=== PATIENT | male | born 1960 | race Caucasian/White ===

== ENCOUNTER 2016-08-31 12:34 | Outpatient (CLI) | payer OTHER ==
[2014-11-18 23:16] VITALS: BP 135/82
== END 2016-08-31 12:35 ==
LOC: CARD 12:34
PROVIDERS: ATTEND Internal Medicine Cardiovascular Disease
DX: I25.810 Atherosclerosis of coronary artery bypass graft(s) without angina pectoris (principal); I10 Essential (primary) hypertension; E78.5 Hyperlipidemia, unspecified; F17.210 Nicotine dependence, cigarettes, uncomplicated
CPT/HCPCS: 99213

== ENCOUNTER 2017-01-23 06:30 | Emergency (ER) | payer OTHER ==
[2017-01-23] MEDS: ORPHENADRINE CITRATE 60 MG/2ML IM ONE (07:02)
[2017-01-23] MEDS: KETOROLAC TROMETHAMINE 60 MG/2 ML VIAL IM ONE (07:02)
[2017-01-23] MEDS: PREGABALIN 50 MG CAPSULE PO ONE (07:03)
--- NOTE | 2017-01-23 07:58 | Diagnostic Imaging Report ---
[facility] [address] [facility].[address] [address] Report Submission Date: Jan 23, 2017 7:54:07 AM CDT Patient Study Name: ANNETTE MARSHALL Date: Jan 23, 2017 7:04:13 AM CDT Modality Type: CR Gender: M Description: SPINE : 58 Institution: [facility] Physician: VERNELL SANDERS - JULIA Cervical spine - five views Clinical history: Neck and right-sided shoulder pain for a couple of months. Findings: Examination of the cervical spine in AP, lateral, both oblique, lateral swimmer's and open mouth views demonstrates the vertebrae to be anatomically aligned. Disc spaces are narrowed at C4-5, C5-6 and C6-7 with osteophyte formation consistent with degenerative disc disease. The prevertebral soft tissues are within normal limits. Posterior osteophytes extend into the neural foramina bilaterally at C4-5, C5-6 and C6-7. The C1-2 articulation is normal and the base of the odontoid is intact. Carotid arterial calcification is incidentally noted. Impression: 1. Advanced spondylosis with degenerative disc disease and posterior osteophytes at C4-5, C5-6 and C6-7. 2. No fracture. 3. Carotid arterial calcification. Electronically signed on Jan 23, 2017 7:54:07 AM CDT by: Jonathan MILLS
--- NOTE | 2017-01-23 08:10 | ED Physician Documentation ---
Neck Injury/Pain - HISTORIAN Historian: patient - HPI Stated Complaint: right arm pain Chief Complaint: Neck Pain Onset: other (chronic) Further Comments: yes (57 year old female patient presents with 2 days of neck and scapula pain. Patient denies any heavy lifting or injury. Reports numbness in fingers of right hand. Reports history of chronic neck and hip pain.) - ROS NEURO/PSYCH: denies: difficulty with speech, anxiety, depression, other EYES/ENT: none CVS/RESP: none CONST: denies: no problems, recent illness GI/: denies: nausea, vomiting, problems urinating MS/SKIN/LYMPH: none - PAST HX Past History: intervertebral disc dis., neck injury, back injury, neck pain, back pain Cardiac Risk Factors: cardiac disease Surgeries/Procedures: cardiac stent Allergies/Adverse Reactions: Allergies Allergy/AdvReac Type Severity Reaction Status Date / Time Penicillins Allergy Verified 01/23/17 06:44 cephalexin monohydrate AdvReac Intermediate Hives Verified 01/23/17 06:44 [From SolvAxis] Home Medications: Ambulatory Orders Medication Instructions Recorded Baclofen [Liorasal] 10 mg PO QID #30 tablet 01/23/17 Ketorolac Tromethamine [Toradol] 10 mg PO TID #15 tablet 01/23/17 - SOCIAL HX Smoking History: cigarettes - FAMILY HX Family History: denies: none - VITAL SIGNS Vital Signs: Vital Signs Temp Pulse Resp BP Pulse Ox 97.9 F 80 16 152/80 97 01/23/17 06:35 01/23/17 06:35 01/23/17 06:35 01/23/17 06:35 01/23/17 06:35 - REVIEWED ASSESSMENT Nursing Assessment Reviewed: Yes Vitals Reviewed: Yes Progress - Progress Progress: Medicated with norflex and toradol IM. Patient states the medications did not help. No grimacing noted, able to reposition self with no complaints or grimacing. Gait steady. Discussed starting gabapentin, patient reports "I can't take that or Zoloft. I makes me crazy." Patient request prescription for oxycodone. 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 Will prescribe 5 day course of toradol and prn baclofen. Instructed to follow up with Dr Abarca on Tuesday. ED Results Lab/Radiology - Radiology Radiology Impressions: Cervical spine - five views Clinical history: Neck and right-sided shoulder pain for a couple of months. Findings: Examination of the cervical spine in AP, lateral, both oblique, lateral swimmer's and open mouth views demonstrates the vertebrae to be anatomically aligned. Disc spaces are narrowed at C4-5, C5-6 and C6-7 with osteophyte formation consistent with degenerative disc disease. The prevertebral soft tissues are within normal limits. Posterior osteophytes extend into the neural foramina bilaterally at C4-5, C5-6 and C6-7. The C1-2 articulation is normal and the base of the odontoid is intact. Carotid arterial calcification is incidentally noted. Impression: 1. Advanced spondylosis with degenerative disc disease and posterior osteophytes at C4-5, C5-6 and C6-7. 2. No fracture. 3. Carotid arterial calcification. - Orders Orders: ED Orders Category Date Time Status CERVICAL SPINE INCLUDING FLEX/EXT, OBLIQ [C SPINE 4 Exams 01/23/17 Completed VIEWS OR MORE] [RAD] Stat Ketorolac Tromethamine [Toradol] Med 01/23/17 06:53 Discontinued 60 mg IM NOW ONE Orphenadrine Citrate [Norflex] Med 01/23/17 06:53 Discontinued 60 mg IM NOW ONE Pregabalin [Lyrica] Med 01/23/17 06:53 Discontinued 50 mg PO BID ONE Neck Injury/Pain - Physical Exam General Appearance: mild distress Neck: nml inspection, non-tender, painless ROM, thyroid nml Back: non-tender, painless ROM, other (Scapula pain - lateral; worse with lying down) Respiratory: chest non-tender, breath sounds nml CVS: heart sounds nml, bilateral pulses nml Abdomen: non-tender, no organomegaly, nml bowel sounds, no distention Skin: normal color, warm/dry, NR, INT, PAL, DR Extremities: non-tender, normal range of motion, no evidence of injury, no edema , J, 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 Neuro/Psych: oriented x3, CN's nml as tested, sensation nml, motor nml, mood/ affect nml, 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
[2017-01-23 08:12] VITALS: BP 148/79
== END 2017-01-23 08:10 | disposition home or self-care (01) ==
LOC: ED 06:30
DX: M50.30 Other cervical disc degeneration, unspecified cervical region (principal)
CPT/HCPCS: 72050; J1885; J2360; 96372; 99283

== ENCOUNTER 2017-01-30 09:24 | Outpatient (CLI) | payer OTHER | END 2017-01-30 09:25 | LOC: RAD 09:24 | PROVIDERS: ATTEND Family Medicine | DX: Z53.9 Procedure and treatment not carried out, unspecified reason (principal) ==

== ENCOUNTER 2017-05-20 13:04 | Outpatient (CLI) | payer OTHER | END 2017-05-20 13:06 | LOC: POD 13:04 | PROVIDERS: ATTEND Podiatrist | DX: G60.3 Idiopathic progressive neuropathy (principal); M20.41 Other hammer toe(s) (acquired), right foot; M20.42 Other hammer toe(s) (acquired), left foot; B35.1 Tinea unguium | CPT/HCPCS: 99203 ==

== ENCOUNTER 2017-08-19 13:34 | Outpatient (CLI) | payer OTHER | END 2017-08-19 13:35 | LOC: POD 13:34 | PROVIDERS: ATTEND Podiatrist | DX: G60.3 Idiopathic progressive neuropathy (principal); M20.41 Other hammer toe(s) (acquired), right foot; M20.42 Other hammer toe(s) (acquired), left foot; B35.1 Tinea unguium | CPT/HCPCS: 99213 ==

== ENCOUNTER 2017-11-15 12:01 | Outpatient (CLI) | payer OTHER | END 2017-11-15 12:03 | LOC: CARD 12:01 | PROVIDERS: ATTEND Internal Medicine Cardiovascular Disease | DX: I25.10 Atherosclerotic heart disease of native coronary artery without angina pectoris (principal); I95.1 Orthostatic hypotension; I10 Essential (primary) hypertension; E78.5 Hyperlipidemia, unspecified; Z72.0 Tobacco use; N18.2 Chronic kidney disease, stage 2 (mild) | CPT/HCPCS: 99213 ==

== ENCOUNTER 2017-12-02 13:28 | Outpatient (CLI) | payer OTHER | END 2017-12-02 13:45 | LOC: POD 13:28 | PROVIDERS: ATTEND Podiatrist | DX: L89.892 Pressure ulcer of other site, stage 2 (principal) | CPT/HCPCS: 97597; 99213 ==

== ENCOUNTER 2017-12-16 14:09 | Outpatient (CLI) | payer OTHER | END 2017-12-16 14:10 | LOC: POD 14:09 | PROVIDERS: ATTEND Podiatrist | DX: L89.892 Pressure ulcer of other site, stage 2 (principal) | CPT/HCPCS: 99213 ==

== ENCOUNTER 2018-01-20 14:55 | Outpatient (CLI) | payer OTHER | END 2018-01-20 15:00 | LOC: POD 14:55 | PROVIDERS: ATTEND Podiatrist | DX: G60.3 Idiopathic progressive neuropathy (principal); M20.41 Other hammer toe(s) (acquired), right foot; M20.42 Other hammer toe(s) (acquired), left foot; B35.1 Tinea unguium; M79.674 Pain in right toe(s); M79.675 Pain in left toe(s) | CPT/HCPCS: 99213 ==

== ENCOUNTER 2018-05-22 20:57 | Emergency (ER) | payer OTHER ==
[2018-05-22 21:48] LABS: eGFR (Non-African) 55
[2018-05-22 21:49] LABS: EOSINOPHILS % 2.7 % (0.0-6.8); MEAN CORPUSCULAR HEMOGLOBIN 32.6 pg (28.0-34.0); MONOCYTES % 9.3 % (0.0-11.0)
--- NOTE | 2018-05-22 21:49 | ED Physician Documentation ---
General Adult - HISTORIAN Historian: patient - HPI Stated Complaint: Chest pain Chief Complaint: General Adult Additional Information: sITTING IN CHAIR WATCHING tv AT HOME AT ABOUT 1830 WHEN HE EXPERIENCED A MOMENTARY cp THAT WAS INTENSE AND FELT LIKE SOME THING WAS ABOUT TO EXPLODE IN HIS CHEST. pAIN ALSO RADIATED "A LITTLE" INTO HIS THROAT AND LEFT SHOULDER. pAIN ORIGINATED JUST DISTAL TO MID STERNAL LEVEL AND AT THE LEFT STERNAL BORDER. tHESE MOMENTARY EPISODES OCCURRED 5 TIMES OVE RAN HOUR. hE TOOK A 325 MG ASPIRIN, in addition to the regularly scheduled 325 mg daily dose. Had "--maker" 11 years ago and had a single stent placed at [facility]. Three momentary episodes of the same pain since arrival in ER, but is pain free at time of exam. No nausea or diaphoresis. Continues to smoke 2 PPD cigarettes. Has had 2-3 years intermittent muscle spasms which can involve any part of his body. No other modifying factors or associated events. - ROS CONST: no problems - PAST HX Past History: AMI Surgeries/Procedures: cardiac stent Allergies/Adverse Reactions: Allergies Allergy/AdvReac Type Severity Reaction Status Date / Time Penicillins Allergy Verified 01/23/17 06:44 sertraline [From Zoloft] Allergy Verified 05/22/18 21:37 sulfamethoxazole Allergy Verified 05/22/18 21:37 [From Bactrim] trimethoprim [From Bactrim] Allergy Verified 05/22/18 21:37 cephalexin monohydrate AdvReac Intermediate Hives Verified 01/23/17 06:44 [From Keflex] Home Medications: Ambulatory Orders Medication Instructions Recorded Aspirin [Aspirin EC] 325 mg PO D 05/22/18 - SOCIAL HX Smoking History: cigarettes - FAMILY HX Family History: No - VITAL SIGNS Vital Signs: Vital Signs Temp Pulse Resp BP Pulse Ox 98.0 F 76 18 156/80 97 05/22/18 21:13 05/22/18 21:13 05/22/18 21:13 05/22/18 21:13 05/22/18 21:13 - REVIEWED ASSESSMENTS Nursing Assessment Reviewed: Yes Vitals Reviewed: Yes Progress - Progress Progress: EKG: sinus rhythm, 72 BPM, no acute changes Report Submission Date: May 22, 2018 10:06:52 PM 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 Left basilar opacity obscures the left heart border. Small left pleural effusion is possible Thoracic spine degenerative changes. Impression: Mild cardiomegaly. Left basilar airspace disease. Small left pleural effusion. Recommend followup to resolution. Patchy right basilar atelectasis. Electronically signed on May 22, 2018 10:06:52 PM SEBD TEACHER by: Susan Guevara Report Submission Date: May 22, 2018 11:00:51 PM SEBD TEACHER Patient Study Name: ANNETTE MARSHALL Date: May 22, 2018 10:32:15 PM SEBD TEACHER Modality Type: CT\\SR Gender: M Description: CT CHEST W/O CONTRAST : 58 Institution: [facility] Physician: VERNELL SANDERS [facility] CT of the chest without contrast Clinical history: Left pleural effusion. Right atelectasis on recent chest x- ray. Technique: CT of the chest is performed in contiguous axial slices with sagittal and coronal reconstructions Findings: The lungs are free of coalescent infiltrate. There is minimal dependent atelectasis in the lung bases. There is no significant pleural effusion or pleural thickening. The central airways are patent. Vascular calcification present in the thoracic aorta with extension into the origins of the great vessels and coronary arteries. This includes calcification in the left main coronary artery. There is no mediastinal or hilar mass or significant adenopathy. Hepatic steatosis is evident on images through the upper abdomen. Spondylitic changes are seen in the thoracic vertebrae. Impression: 1. Dependent atelectasis in the lungs 2. Vascular calcification including calcification in the left main coronary artery. 3. Hepatic steatosis. Electronically signed on May 22, 2018 11:00:51 PM SEBD TEACHER by: Jonathan Main 0008, now tells RN he has been having "hellacious" pains. He explains that the pains are still momentary, still at L distal sternal border. Sometimes when he rotates head to right, the pain happens, but this is not consistent. Will give MS to see what effect it has on pains. 0030, spoke with Fatoumata, clinical project coordinator at [facility]. 0120, discussed pt with Dr. Dewey , cardiology, at [facility]. Ok to send pt home and FU with cardiology in next 2-3 days. ED Results Lab/Radiology - Orders Orders: ED Orders Category Date Time Status Continuous EKG monitoring Q1H Care 05/22/18 21:[address] IV Lock 1T Care 05/22/18 21:14 Active CHEST 2VIEW [RAD] Stat Exams 05/22/18 Ordered CBC/PLATELET/DIFF Routine Lab 05/22/18 21:19 Received CMP Routine Lab 05/22/18 21:19 Received TROPONIN I (cTnI) Stat Lab 05/22/18 21:19 Received URINALYSIS Routine Lab 05/22/18 Ordered EKG WITH COMPARISON Stat Ther 05/22/18 Ordered General Adult Physical Exam - PHYSICAL EXAM GENERAL APPEARANCE: mild distress (concerned) EENT: eye inspection normal, ENT inspection normal, pharynx normal (Mallampati 1) NECK: normal inspection, supple RESPIRATORY: no resp distress, chest non-tender, breath sounds normal CVS: reg rate & rhythm, heart sounds normal, no murmur ABDOMEN: soft, normal bowel sounds BACK: normal inspection, no CVA tenderness, other (no vertebral tenderness) SKIN: warm/dry, normal color EXTREMITIES: normal range of motion (gait and stance), no evidence of injury NEURO: CN's nml as tested, motor nml, sensation nml, cognition normal Discharge Clincal Impression: Non-cardiac chest pain Referrals: Ko Abarca MD [Primary Care Provider] - 2 Days Additional Instructions: Make an appointment with cardiology to be seen in the next two days. The phone number for the Jud is . Take the CD with your chest x ray and CT scan and EKG to that appointment. Return to the ER if your pain worsens or changes. Condition: Good Disposition: HOME, SELF-CARE Decision to Admit: NO Decision Time: 01:20
[2018-05-22 21:50] LABS: BASOPHILS % 0.5 (0.0-1.5); NEUTROPHILS # 3.7 # k/uL (1.4-7.7)
[2018-05-22] MEDS ORDERED: 0.9 % SODIUM CHLORIDE 1,000 ML IV ONE (22:05)
[2018-05-22] MEDS ORDERED: 0.9 % SODIUM CHLORIDE 1,000 ML IV SCH (22:30)
[2018-05-23] MEDS ORDERED: MORPHINE SULFATE 10 MG/ML VIAL IVP ONE (00:05)
[2018-05-23] MEDS ORDERED: ONDANSETRON HCL/PF 4 MG/ 2ML VIAL IVP ONE (00:05)
[2018-05-23 02:03] VITALS: BP 124/70
--- NOTE | 2018-05-23 06:31 | Diagnostic Imaging Report ---
VERNELL SANDERS [facility] [address] [facility] [address] [place] [address]. 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 Left basilar opacity obscures the left heart border. Small left pleural effusion is possible Thoracic spine degenerative changes. Impression: Mild cardiomegaly. Left basilar airspace disease. Small left pleural effusion. Recommend followup to resolution. Patchy right basilar atelectasis. Electronically signed on May 22, 2018 10:06:52 PM INS[employer] by: Susan MILLS
--- NOTE | 2018-05-23 06:31 | Diagnostic Imaging Report ---
VERNELL SANDERS [facility] [address] [facility] [address] [place], [place]. [address] Report Submission Date: May 22, 2018 11:00:51 PM LATCHER Patient Study Name: ANNETTE MARSHALL Date: May 22, 2018 10:32:15 PM LATCHER Modality Type: CT\SR Gender: M Description: CT CHEST W/O CONTRAST : 58 Institution: [facility] [place] [facility] Physician: VERNELL SANDERS CT of the chest without contrast Clinical history: Left pleural effusion. Right atelectasis on recent chest x- ray. Technique: CT of the chest is performed in contiguous axial slices with sagittal and coronal reconstructions Findings: The lungs are free of coalescent infiltrate. There is minimal dependent atelectasis in the lung bases. There is no significant pleural effusion or pleural thickening. The central airways are patent. Vascular calcification present in the thoracic aorta with extension into the origins of the great vessels and coronary arteries. This includes calcification in the left main coronary artery. There is no mediastinal or hilar mass or significant adenopathy. Hepatic steatosis is evident on images through the upper abdomen. Spondylitic changes are seen in the thoracic vertebrae. Impression: 1. Dependent atelectasis in the lungs 2. Vascular calcification including calcification in the left main coronary artery. 3. Hepatic steatosis. Electronically signed on May 22, 2018 11:00:51 PM LATCHER by: Jonathan MILLS
== END 2018-05-23 01:35 | disposition home or self-care (01) ==
LOC: ED 20:57
DX: R07.89 Other chest pain (principal); F17.200 Nicotine dependence, unspecified, uncomplicated
CPT/HCPCS: 71046; 71250; 80053; 84484; 85025; 93005; J2270; J2405; J7030; 36415; 96365; 96375; 99284; S1016

== ENCOUNTER 2019-04-14 02:15 | Emergency (ER) | payer OTHER | END 2019-04-14 02:45 | disposition home or self-care (01) | LOC: ED 02:15 | DX: G62.9 Polyneuropathy, unspecified (principal); M79.662 Pain in left lower leg; M79.661 Pain in right lower leg | CPT/HCPCS: 99282 ==

== ENCOUNTER 2019-05-14 10:37 | Outpatient (CLI) | payer OTHER ==
--- NOTE | 2019-05-15 15:06 | Diagnostic Imaging Report ---
PATIENT MR#: [id number] PATIENT PATIENT NAME: ANNETTE MARSHALL DATE OF : 1960 REFERRING PHYSICIAN: MARLEN SIEGEL EXAM DATE: 05/14/2019 ACCESSION NUMBER: [id number] EXAM DESCRIPTION: FOOT 3 VIEWS OR MORE CLINICAL HISTORY: RT FOOT ULCER WITH DRAINAGE COMPARISON: No study for comparison is available at the time of interpretation. 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 Mild osteopenia is noted at the lateral as pect of the 2nd proximal phalanx base. Osteopenia is also noted at the 3rd through 5th metatarsals heads. Plantar pari caneal spur at the plantar fascia insertion may predispose to plantar fasciitis. Joint spaces: The bones are well aligned. No articular surface abnormality is noted. Soft tissues: There is mild thickening of the tissues at the amputation site, without soft tissue gas . IMPRESSION: 1. 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 2. Mild osteopenia of the 2nd proximal phalanx base and 3rd through 5th metatarsal heads. 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 Follow-up radiographs may be helpful to evaluate for interval c hange in response to therapy. If infection worsens or persists, MRI would be helpful to evaluate for marrow edema in th e setting of osteomyelitis. Findings were discussed with Dr. Siegel by phone on May 15, 2019. Read by: Dr. Brando Rios Transcribed by: Brando Rios Transcribed Date: 05/15/2019 3:04:33 PM Electronically signed by: Dr. Brando Rios Date signed: 05/15/2019 3:05:28 PM
== END 2019-05-14 10:47 ==
LOC: RAD 10:37
PROVIDERS: ATTEND Podiatrist Foot & Ankle Surgery
DX: L97.519 Non-pressure chronic ulcer of other part of right foot with unspecified severity (principal)
CPT/HCPCS: 73630

== ENCOUNTER 2019-05-24 13:01 | Outpatient (CLI) | payer OTHER ==
--- NOTE | 2019-05-31 11:16 | OP Clinic Progress Note ---
DATE OF VISIT: 05/24/2019 SUBJECTIVE: Karla is a 59-year-old male presenting to clinic today for followup of a right foot ulcer under the third metatarsal head. The patient has a history of an open-heart surgery in the last year, as well as an Achilles tendon lengthening procedure that was performed in December or January 2019. He has been cared for by believe Dr. Dunn for this non-healing wound on the plantar third metatarsal head area of the right foot. He was being treated for several months and is not seeing anyone for that wound, as he felt that was going to improve. He has a history of infection in that wound, which started the process that led to an Achilles tendon lengthening. He also has a history of a third toe amputation on the right foot. I believe, this was also due to the infection. 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 The patient does not admit to any fevers, chills, nausea, vomiting, shortness of breath or chest pain. OBJECTIVE: Vitals: Temperature 97.5 degrees Fahrenheit, heart rate 78, respiration rate 18, blood pressure 146/86. O2 saturation is 94% on room air. Vascular: 2+ DP and PT pulses, right foot today. Capillary refill time is less than 3 seconds to the toes of the right foot. There is no edema noted, right foot. Dermatologic: There is an open lesion still present with mild hyperkeratosis around the edges second and third metatarsal head, right foot. This has a little bit of slough at the base, which was debrided today, as well as the hyperkeratotic tissue on the edges. This is measuring today at 1.0 x 0.25 x 0.4 cm deep. This wound does not probe to bone. It appears that the depth is improving, which is what I am going for before any closure from the side. There is no erythema or malodor or purulence or abnormal warmth or any abnormal drainage. There are no other skin abnormalities noted, right foot. The wound is measuring slightly larger than previous, but overall looks healthier and better today. Musculoskeletal: There is no pain on palpation nor with debridement of the right second and third metatarsal head area. There is a history of right third toe amputation. The right ankle dorsiflexion is at 10 degrees of the knee extended. No other gross abnormalities noted, bilateral feet. Neurologic: Light touch sensation is absent through the entire feet, bilaterally. A 5.07 Sorento-Michelle monofilament test is absent/negative at the entire bilateral feet plantarly and dorsally from previous exam. ASSESSMENT AND PLAN: 1. Ulcer of the right foot, unspecified ulcer stage L97.519. 2. Peripheral polyneuropathy G62.9. We discussed with the patient the importance of him getting his new custom foot inserts ordered, as they were ordered previously and have worn down, but they were made with an off-loading third metatarsal head area from previous. The patient has found the contact information of who to call but states that he did not call them like he was supposed to. He has been wearing the inserts, however, that I off-loaded underneath the inserts to try and protect the third metatarsal head more. He is open to a surgical shoe today with better off- loading. The patient admits to being a smoker. Since he quit before his heart surgery but resumed again for about three months or four months now, has been smoking one and a half packs per day or so. The patient understands that this will slow his healing or limit his chances of healing. PROCEDURE #1: Sharp debridement less than 20 sq cm down to and including subcutaneous tissue layer of the second and third metatarsal head. Ulcer of the right foot was performed with a #15 blade today. The patient had hemostasis obtained with pressure. The site was rinsed with copious amounts of normal saline, dried and Triple Antibiotic Ointment and 4x4 gauze was placed and covered with Medipore tape to hold it on the wound. This is how the patient has been dressing his foot at home. He will use antibiotic ointment rather than Betadine upon my instructions today. The patient was dispensed a surgical shoe with a quarter-inch felt pad added in the plantar foot entire length and an off-loaded spot under the third metatarsal head was cut in the pad and the shoe pad. The patient understands that he needs to wear this at all times and that he cannot go without wearing this or the insert from with the shoes or else he will have a more difficult time healing. X-rays were reviewed with the patient today as well and there were no signs of any erosions in the metatarsal head. There was a questionable area in the base of the proximal phalanx laterally of the second toe, but after discussion with the radiologist, he is not concerned about it at this time. We will obviously consider an MRI in the future if we cannot get this to close up. The patient otherwise is doing great and feels that it is already doing better. He will return to clinic in one week for followup and we will continue local wound care. We had not received any records from Dr. Dunn and we will consider sending a request to him for those. I am not sure that they will be super important or helpful at this time, as we are not aware of any obvious history issues from the patient, but it may help us with more information. We will at least attempt to get more information from him. We will consider whether or not we need to do any sort of surgery with a long third metatarsal or not. I am not sure if it is excessively long. I do not think it had any major problem on the x-ray. The patient has had a history of an Achilles tendon lengthening previously, which is good. We will keep in mind that the patient has a history of open-heart surgery and that HE HAS ALLERGIES INCLUDING PENICILLIN, KEFLEX, ZOLOFT AND BACTRIM. The patient will be back in one week. Basim Siegel D.P.M./[employer] [id number] R: 05/30/19 /mab MTDD
== END 2019-05-24 13:31 ==
LOC: POD 13:01
PROVIDERS: ATTEND Podiatrist Foot & Ankle Surgery
DX: L97.519 Non-pressure chronic ulcer of other part of right foot with unspecified severity (principal); G62.9 Polyneuropathy, unspecified
CPT/HCPCS: 11042; 99213; A4554

== ENCOUNTER 2019-06-05 07:59 | Outpatient (CLI) | payer OTHER ==
--- NOTE | 2019-06-06 15:40 | OP Clinic Progress Note ---
DATE OF VISIT: 06/05/2019 SUBJECTIVE: Karla is a 59-year-old male presenting to clinic today for follow- up of a right foot ulcer under the right third metatarsal head area plantarly. The patient has been taking care of this with antibiotic ointment and gauze and has been able to get his inserts adjusted with a better off-loaded metatarsal head area from the site he received his inserts previously. I looked at these inserts and they look great. I am happy with the adjustment. The patient does not admit to any other issues or problems at this time to the right foot. He does not admit to any fevers, chills, nausea, vomiting, shortness of breath or chest pain at this time. 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 OBJECTIVE: Vitals: Temperature 96.0, heart rate 89, respiration rate 18, blood pressure 144/73. O2 sat is 98% on room air. Vascular: 2+ DP and PT pulses, right foot. QA MANAGER less than 3 seconds to the toes of the right foot. There is no edema noted, right foot. Dermatologic: There is still an open lesion noted with mild hyperkeratotic tissue around the edge of the sub-third metatarsal head area of the right foot. This was debrided around the edges as well as the wound base to show a granular bleeding base measuring today at 0.9 x 0.3 x 0.45 cm deep. This is very similar to measurement last time. There is no probe to bone or undermining or any fluctuance noted. There is no erythema or malodor or purulence or any warmth or signs of infection at this time. Musculoskeletal: There is no pain on palpation nor with debridement of the right sub-third metatarsal head area lesion. There is a history of a right third toe amputation of this foot. From previous exam, the right ankle dorsiflexion is at 10 degrees with the knee extended. There are no other gross abnormalities noted, right foot. Neurologic: Light touch sensation is absent through the entire feet bilaterally. The 5.07 [place]-Michelle monofilament test was absent/negative at the entire bilateral feet plantarly and dorsally from a previous exam. ASSESSMENT AND PLAN: 1. Right foot ulcer, L97.519. 2. Peripheral polyneuropathy, G62.9. PROCEDURE #1: A sharp debridement less than 20 sq cm down to and including the subcutaneous tissue layer with a #15 blade was performed today on the right foot plantar third metatarsal head lesion. This lesion is noted about the sub- third/second metatarsal head area, right foot plantarly. This was rinsed with normal saline, dried and had dressing consisting of Triple Antibiotic Ointment and 4x4 gauze covered with Medipore tape today. The patient tolerated this well. The patient is to continue using his off-loading custom inserts that he is using in his shoes. I hope that this adjustment recently by the custom orthotic location will make for great improvement in this wound. The patient will continue doing daily dressing changes as we did today, and using the off-loading inserts at all times. We will have the patient return to clinic in two weeks from this for a follow-up in the outpatient clinic and we will consider if this is improving at that time. If we are not improving, we will begin efforts to obtain approval for EpiFix graft application if we can get it covered to try and improve the depth first of the wound before the superficial aspect tries to close over. The patient understands that this is the plan. We will see him in two weeks. The patient knows that I am out of town from this Tuesday through the entire next week and if there are any concerns, he needs to report to the emergency room or an urgent care or see a primary care doctor immediately and not wait until I get back. The patient understands this and we will see him in two weeks from this . The patient is a smoker and understands that he may be slowing down his ability or lowering his ability to heal this wound because of that. We have discussed this previously. We will also still consider whether or not there is an issue with the long metatarsal if this is not improving at our next visit. If it is not improving, I will review x-rays again and consider if we need to do any sort of a shortening procedure of the metatarsal surgically. Please keep in mind that the patient has a history of open heart surgery and that he has ALLERGIES INCLUDING PENICILLIN, KEFLEX, ZOLOFT AND BACTRIM. We will keep this all in mind if we need to consider any surgical option. VANCE Brothers/shalonda Job #[id number] GENE
== END 2019-06-05 08:29 ==
LOC: POD 07:59
PROVIDERS: ATTEND Podiatrist Foot & Ankle Surgery
DX: L97.519 Non-pressure chronic ulcer of other part of right foot with unspecified severity (principal); G62.9 Polyneuropathy, unspecified
CPT/HCPCS: 11042; 99213; A4554

== ENCOUNTER 2019-06-19 12:31 | Outpatient (CLI) | payer OTHER ==
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
== END 2019-06-19 13:31 ==
LOC: OUT 12:31
PROVIDERS: ATTEND Nurse Practitioner Adult Health
DX: G60.9 Hereditary and idiopathic neuropathy, unspecified (principal); R25.2 Cramp and spasm
CPT/HCPCS: 80307; 80358; 99203

== ENCOUNTER 2019-06-21 09:04 | Outpatient (CLI) | payer OTHER ==
--- NOTE | 2019-06-22 17:22 | OP Clinic Progress Note ---
DATE OF VISIT: 06/21/2019 SUBJECTIVE: Gil is a 59-year-old male with peripheral neuropathy and a foot ulcer under the right third metatarsal head. The patient states that he is doing well but feels that things are not improving. He continues to get a callus within a few days after leaving our visits. He is using a surgical shoe with offloading as well as his shoes with an appropriate offloaded insert at all times. He is not walking around barefoot, or in socks or slippers alone at all. He is doing a good job taking care of this at home. He is using antibiotic ointment and gauze and tape every day. He admits today again that he only had this infected once quite awhile ago and it was a mild infection. He did have significant infection into the bone of the right third toe which is why that was removed awhile back. The patient does not admit to any fevers, chills, nausea, vomiting, shortness of breath or chest pain. OBJECTIVE: Vitals: Temperature 98.6 degrees Fahrenheit, heart rate 75, respiration rate 18, blood pressure 147/88. O2 saturation is 97% on room air. Vascular: 2+ DP and PT pulses, right foot. Capillary refill time is less than 3 seconds to the toes of the right foot. There is no edema noted, right foot. Dermatologic: The patient has a significant hyperkeratotic lesion with an obvious central opening that goes deep. The hyperkeratotic tissue was debrided today to reveal a wound that is still present measuring at a much improved size of 0.35 x 0.1 x 0.35 cm deep. This is greatly improved from last time where it measured 0.9 x 0.3 x 0.45 cm deep. The patient was happy to hear of the improvement. He also has a good granular base with good bleeding with debridement today. This does not undermine at all and only has a slight bit of depth that is improved from last visit. There is no probe to bone or any sort of fluctuance noted. There is no warmth, erythema or any other signs of malodor, purulence or signs of infection. Musculoskeletal: There is no pain on palpation nor with debridement today of the right sub third metatarsal head ulcer. There is a history still of a right third toe amputation that was performed previously elsewhere. The patient has from previous exam good ankle dorsiflexion on the right side at 10 degrees with the knee extended. Neurologic: Light touch sensation is absent throughout the entire feet bilaterally. The 5.0 [place]-Michelle Monofilament Test was absent/negative in the entire bilateral feet plantarly and dorsally from previous exam as well. ASSESSMENT AND PLAN: 1. Right foot ulcer; L97.519. 2. Peripheral polyneuropathy; G62.9. PROCEDURE #1: Sharp debridement of less than 20 sq cm down to and including the subcutaneous tissue layer was performed with a #15 blade today at the sub third metatarsal head ulcer of the right foot. The site was rinsed with a copious amount of normal saline. Hemostasis was obtained with pressure. The site was dressed with triple antibiotic ointment and 4x4 gauze and Medipore tape. The patient is to continue doing this daily and to keep it protected in offloading surgical shoe and offloading insert in his regular shoe. We discussed that this had great improvement since our last visit which made the patient very excited. We will continue present care and if there is any sort of stalling at any point then we will consider an MRI to confirm that there is no osteomyelitis due to the history of osteo in the toe that was removed as well as history of infection and length of time that this wound has been present. We will also consider if the MRI is negative a surgery to shorten the right third metatarsal in order to take less pressure as it appears to be perhaps slightly plantar flexed at this time. It also appears slightly longer than I would like. I believe that if we could shorten that slightly it would also improve his likelihood of healing. The concern of course is this may cause transfer lesions to the right second and fourth metatarsal heads if we are not careful. We would likely plan on an MRI if there is any stalling and look for any signs of infection first. He has good bleeding and we are keeping pressure off and it is showing improvement and we will continue present management because of that. We will also look into an EpiFix graft if this does stall at any point. We did get over half improvement which means he does not qualify this time for a graft. Return to the clinic in 1-1/2 weeks from now which would be on July 02. The patient will call and set up that appointment once he looks at his schedule. We will see him at that time. Basim Siegel D.P.M. Amanda Job #[id number] MTDD
== END 2019-06-21 09:34 ==
LOC: POD 09:04
PROVIDERS: ATTEND Podiatrist Foot & Ankle Surgery
DX: L97.519 Non-pressure chronic ulcer of other part of right foot with unspecified severity (principal); G62.9 Polyneuropathy, unspecified
CPT/HCPCS: 11042; 99213; A4554

== ENCOUNTER 2019-07-02 14:01 | Outpatient (CLI) | payer OTHER ==
--- NOTE | 2019-07-03 16:53 | OP Clinic Progress Note ---
DATE OF VISIT: 07/02/2019 SUBJECTIVE: Gil is a 59-year-old male presenting in clinic today for follow- up of a right foot plantar ulcer as well as peripheral polyneuropathy that has been present for awhile. The patient admitted partway through our visit today that he is on Plavix and a full strength aspirin and bleeds a lot. He states that he thinks that the wound is improving overall, however. He also admits an ALLERGY TO BACTRIM AND PENICILLIN WELL OTHER MEDICATIONS. The patient does not admit to any fevers, chills, nausea, vomiting, shortness of breath or chest pain. The patient admits that his auto transport driver is Moe Roy and he had a CABG performed previously, I believe in the last 6 or 7 months if I remember right, and therefore is on the blood thinners. OBJECTIVE: Vitals: Temperature 97.4 degrees Fahrenheit, heart rate 75, respiration rate 18, blood pressure 129/80. O2 saturation is 96% on room air. Vascular: 2+ DP and PT pulses, right foot. Capillary refill time is less than 3 seconds to the toes of the right foot. There is no edema noted, right foot. Dermatologic: The sub third metatarsal head area on the right foot still has some hyperkeratotic tissue which when debrided revealed a central open lesion that is measuring today at 0.4 x 0.2 x 0.2 cm deep. This is very similar to last time. There is no erythema or drainage at this time. The patient did admit minor drainage still on the dressings at times but states that it is improved. Overall, the depth is improved from previous measurements of 0.35 x 0.1 x 0.35 cm. The patient has no erythema, warmth, purulence or signs of infection noted. It should be noted that upon debridement today there was noticeable pinpoint bleeders in little circular arrangements and the surrounding edge of the lesion. Due to this, I am concerned that there may be a verrucoid component to this lesion. Because of the location and the appearance of hyperkeratotic tissue every time and the absence of verrucoid appearance anytime previously, we have been treating as a pressure lesion. At this time based on the visual today of a verrucoid appearance on the edges of the lesion we talked to him about the possibility of doing a punch biopsy to make sure we are not missing something important such as a verrucoid carcinoma or anything concerning of that nature, or even just a plain verruca that we are not treating appropriately with just offloading. The patient understands that this will set him back a couple weeks from healing as we would be creating a hole that would need to fill in again. The patient understands this and as we were getting ready to do the procedure, volunteered the information that he is on Plavix and full strength aspirin so we decided to hold off on the procedure at this time as his blood is quite thin and visibly thin today. Upon normal debridement today revealing the wound measured above, there was significant bleeding that we controlled with pressure and silver nitrate. Musculoskeletal: There is a prominent area sub third metatarsal head right foot. There is some digital deformity noted in the right foot as well as a history of right third toe amputation performed previously I believe due to significant infection. Neurologic: Light touch sensation is absent throughout the entire feet bilaterally. The 5.0 [place]-Michelle Monofilament Test was absent, negative in the entire bilateral feet plantarly and dorsally from previous exam as well. ASSESSMENT AND PLAN: 1. Right foot ulcer, L97.519. 2. Peripheral polyneuropathy, G62.9. 3. 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 PROCEDURE #1: Sharp debridement of the right third sub metatarsal head lesion was performed with a #15 blade down to and including the subcutaneous tissue layer and significant bleeding was visualized which was controlled with silver nitrate and pressure. This was all less than 20 sq cm in size. This was rinsed with normal saline and dried and had dressings applied consisting of triple antibiotic ointment, 4x4 gauze and Medipore tape. The patient will continue doing daily dressing changes as above. We discussed with the patient that we will speak and reach out to Dr. Moe Roy at the [facility] and request his recommendations on changing blood thinner medications if allowed or possible so that we can know what to tell the patient with respect to the Plavix and full strength aspirin he is on and if we can adjust those for a certain amount of time so we can do a punch biopsy more safely at the sub third metatarsal head area. The patient is okay with this plan and knows that this will likely set him back in healing a little bit as we would be creating a wound. He does know that we need to look into this to make sure it is not verrucoid in nature especially if there is any sort of concern for a verrucoid carcinoma. I would like to make sure of this as the wound has been there for 30 years, he says. Return to the clinic in 1-1/2 weeks on 07/12/2019. We will continue local wound care at that time and will do a punch biopsy only when we have received approval from Dr. Roy and adjustments for his Plavix and full strength aspirin. ADDENDUM: We will also consider an MRI if this is not improving and if we do not have any signs of verrucoid lesion. We will look for any signs of infection from senior living wound. First we will look into the biopsy. Basim Siegel D.P.M. MALIK/chaim Job#: [id number] MTDD
== END 2019-07-02 14:31 ==
LOC: POD 14:01
PROVIDERS: ATTEND Podiatrist Foot & Ankle Surgery
DX: L97.519 Non-pressure chronic ulcer of other part of right foot with unspecified severity (principal); G62.9 Polyneuropathy, unspecified
CPT/HCPCS: 11042; 99213; A4554

== ENCOUNTER 2019-07-12 14:28 | Outpatient (CLI) | payer OTHER ==
--- NOTE | 2019-07-16 12:34 | OP Clinic Progress Note ---
DATE OF VISIT: 07/12/2019 SUBJECTIVE: Karla is a 59-year-old male who is not diabetic but does have peripheral neuropathy of unknown etiology to the right lower extremity. The patient has been seen recently for a right foot ulcer under the sub third metatarsal head region where the amputation had happened previously for him. 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 The patient has had a hard time ever getting it to heal and stay healed. He has not had it healed, closed in at least a year now. The patient does not admit to any issues but states that he is excited that he has not had any drainage except after the first couple of days since our last visit. He states that it is looking really good to him. He is keeping it covered with the Band-Aid. The patient does not admit to any fevers, chills, nausea, vomiting, shortness of breath or chest pain. We submitted to his second watch sergeant Dr. Moe Krueger at the [facility] to see if it would be okay with us adjusting his heart medication to make sure that his blood was not so thin that we could not do a punch biopsy and control the bleeding. We have not heard anything back and honestly at this point because of how good the wound looks we will likely not worry about that at this time as it seems to be healing beautifully. The patient does not admit to any fevers, chills, nausea, vomiting, shortness of breath or chest pain. OBJECTIVE: Vitals: Temperature 97.3 degrees Fahrenheit, heart rate 77, respiration rate 18, blood pressure 140/76. O2 saturation is 96% on room air. Vascular: 2+ DP and PT pulses, right foot. Capillary refill time is less than 3 seconds to the toes of the right foot. There is no edema noted, right foot. Dermatologic: The sub third metatarsal head area of the right foot has some hyperkeratotic tissue today that we debrided down to intact epithelium that is thin but intact. There is no erythema or drainage at all or any signs of infection noted. There are no signs of pinpoint bleeding today like there was last time around the edges of the wound. There is no open lesion at this time and this is the first time it is closed/healed in about a year according to the patient. There is no erythema or ecchymosis or any other concerning lesions on the right foot. Musculoskeletal: There is a prominent sub third metatarsal head area where this wound has been noted that we are offloading with appropriate inserts. He has a history of a right third toe amputation that was performed previously due to infection. Neurologic: Light touch sensation is absent throughout the entire feet bilaterally. A 5.07 Kenney-Michelle monofilament test was absent/negative in the entire bilateral feet plantarly and dorsally from a previous exam. ASSESSMENT AND PLAN: 1. Right foot ulcer, L97.519 - healed with thin skin for the first time in a year. 2. Peripheral neuropathy in the bilateral lower extremities, G52.9. PROCEDURE #1: Debridement of hyperkeratotic skin with #15 blade to intact thin epithelium. The patient tolerated this well and we are excited that this is the first time it has been closed. We will have the patient return to clinic in two weeks to make sure that this skin stays strong and does not open up or cause any problems. We will then push him out a month as long as things are looking good and with very little need for callus debridement. The patient understands the plan that now that he has healed we want to make sure that it stays healed and we will progressively lengthen out his appointments as long as his callus stays healed. They have made recent adjustments to his orthotic to offload this area since the time when I made adjustments where they then removed my adjustments and padding and made their own padding in the orthotic which is great. We will continue to watch the patient closely. We will not plan on doing any sort of biopsy at this time as there does not have any verrucoid appearance at this time and the patient has officially healed the wound and we will continue to monitor it closely. Basim Siegel D.P.M./[employer] [id number] /anabel MILLS
== END 2019-07-12 15:05 ==
LOC: POD 14:28
PROVIDERS: ATTEND Podiatrist Foot & Ankle Surgery
DX: G62.9 Polyneuropathy, unspecified (principal)
CPT/HCPCS: 11055; 99213; A4554

== ENCOUNTER 2019-07-17 11:02 | Outpatient (CLI) | payer OTHER ==
--- NOTE | 2019-07-17 13:54 | Diagnostic Imaging Report ---
PATIENT MR#: [id number] PATIENT PATIENT NAME: ANNETTE MARSHALL DATE OF : 1960 REFERRING PHYSICIAN: Karla Simeon EXAM DATE: 07/17/2019 ACCESSION NUMBER: [id number] EXAM DESCRIPTION: C SPINE 4 VIEWS OR MORE HISTORY: NECK PAIN AND CERVICAL RADICULOPATHY COMPARISON: January 23, 2017. C-SPINE XRAY, 8 views including obliques and flexion-extension: Vertebral bodies: No compression deformities. The dens is intact and the lateral masses are symmetric . Disc spaces: Mild degenerative disc narrowing at C2-3, C3-4 and C7-T1. Moderate generation disc narr owing at C4-5, C5-6 and C6-7. Alignment: Straightening of the normal cervical lordosis without listhesis on flexion extension. Neural foramina: Significant neural foraminal stenosis noted from C2-3 through C6-7 on the left, and C3-4 through C6-7 on the right. Cervical vessels: Atherosclerotic calcification noted within the carotid bulbs. IMPRESSION: 1. Multilevel degenerative disc narrowing, more pronounced at C4-5, C5-6 and C6-7. 2. Multilevel neural foraminal stenosis from C2-3 through C6-7. 3. Carotid arteriosclerosis which appears progressed compared to prior. Read by: Dr. Brando Rios Transcribed by: Brando Rios Transcribed Date: 07/17/2019 1:53:41 PM Electronically signed by: Dr. Brando Rios Date signed: 07/17/2019 1:53:41 PM
--- NOTE | 2019-07-20 09:02 | OP Clinic Progress Note ---
DATE OF VISIT: 07/17/2019 CHIEF COMPLAINT: Bilateral hand pain and bilateral feet pain. HISTORY OF PRESENT ILLNESS: Mr. Lyon is a 59-year-old male patient here for followup and medication refill. The patient has had foot pain starting approximately 20 years ago, and approximately five to six years ago, he was diagnosed with peripheral neuropathy. He describes his feet pain as constant, numb, tingly and burning. He also has hand pain that is constant, numb, tingly and hypersensitive. His pain symptoms seem to be worse with cold weather or touching something that is hot or cold. His pain symptoms are improved with tramadol. The patient has been seeing Dr. Main at the [facility]. I did request records at his last visit and those were obtained. The patient completed an EMG of the upper extremities on 05/24/2017, which revealed evidence of a C6-C7 radiculopathy with ongoing distal denervation. In addition there was evidence of mild right carpal tunnel syndrome and ulnar neuropathy across the elbow. It is noted that the radiculopathy findings correlate with the MRI changes that he had at the same time. The patient was supposed to see a running specialist, however, he denies any knowledge of this. I do have an MRI dated 07/14/2018 at the [facility] of his cervical spine. Impression: Multilevel cervical degenerative disc disease most prominent at C4- C5 and C5-C6. At the C6-C7 level the patient does have a disc osteophyte complex without significant spinal canal narrowing. Bilateral uncovertebral hypertrophy and facet arthropathy causing [id number]-[id number] bilateral foraminal stenosis. That MRI is approximately a little over one year old now and I did discuss with the patient that this should be repeated. He also had an MRI of his lumbar spine without contrast performed at the [facility] on 07/14/2018. Impression: Mild multilevel lumbar spondylosis without significant central canal stenosis. At the L2-L3 level there was mild bilateral foraminal narrowing. Also reviewed was an EMG of his lower extremities completed on 01/22/2019 at the [facility] and the conclusion is that there was evidence of xrvbwatk-hv-eymbca sensorimotor axonal length dependent polyneuropathy with evidence of ongoing denervation. The neurologist finds that the patient has [id number] peripheral polyneuropathy with severe neuropathy pain. In the past the patient has tried gabapentin, Cymbalta and Lyrica all with side effects that he could not tolerate. The most effective medication that the patient has taken as of recent has been tramadol. He would like to continue this. [facility] Reviewed for date of service 06/19/2019 and remains unchanged. REVIEW OF SYSTEMS: Also reviewed for date of service 06/19/2019 and remains unchanged. PHYSICAL EXAMINATION: General: This is a well-developed, well-nourished male patient presenting in [facility]. Vital Signs: Temperature is 97.2, pulse 79, respiratory rate 20, blood pressure 141/82, with an SaO2 of 95% on room air. Pain is rated at 5-6/10. Psych: He is alert and oriented x3. He is calm, pleasant and cooperative. HEENT: He is normocephalic and atraumatic. Bilateral pupils are equal and round without miosis. Sclerae clear. Musculoskeletal: On inspection of the patient's head, neck, cervical, thoracic, lumbar spine, upper and lower extremities, there are no gross deformities noted. The patient is able to move all extremities equally. The patient does have tenderness to palpation over the lower cervical spinous processes in facets as well as along the cervical paraspinals in the lower lumbar spine. Upper extremity strength is equal and strong, all areas graded 5/5 bilaterally. The patient has hypersensitivity of bilateral hands and the patient has hyposensitivity to bilateral feet and calves. Neurologic: Cranial nerves II through XII are grossly intact. The patient does walk with an antalgic gait. ASSESSMENT: 1. Cervicalgia. 2. Cervical radiculopathy. 3. Cervical DDD with neuroforaminal narrowing. 4. Severe peripheral polyneuropathy. 5. Muscle cramping. PLAN: 1. Today I have ordered a cervical x-ray series to include odontoid flexion and extension. 2. I have ordered a cervical MRI without contrast to further evaluate his neck and to correlate with the most recent EMG. As the patient never followed up with a spine surgeon previously, we will have to reevaluate and treat based on his current symptoms and based on the new imaging. 3. The patient is to continue the home exercise program. 4. Today I have prescribed the patient tramadol 50 mg q.4h p.r.n., dispense #42 to fill today. Tramadol 50 mg q.4h p.r.n., #138 to fill on 07/24/2019 or after. Tizanidine 4 mg p.o. t.i.d. p.r.n. muscle spasms #90 with two refills. 5. The patient is to follow up in one month or sooner if needed. 6. 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 Moe Roy at the [facility]. The patient verbalizes understanding and agrees to the current treatment plan. AIMEE Obrienurse Practitioner /[employer] [id number] /mab cc: Deandre Liu MD MTDD
== END 2019-07-17 12:02 ==
LOC: OUT 11:02
PROVIDERS: ATTEND Nurse Practitioner Adult Health
DX: M50.123 Cervical disc disorder at C6-C7 level with radiculopathy (principal); G62.9 Polyneuropathy, unspecified
CPT/HCPCS: 99214